=== PATIENT | female | born 1995 | race Two or more races ===

== ENCOUNTER 2019-02-04 21:08 | Emergency (ER) | payer SELFPAY ==
[~2019-02-04] VITALS: Ht 167.6 cm; Wt 73.0 kg
[2019-02-04 22:09] VITALS: BP 108/55
== END 2019-02-05 02:03 | disposition left against medical advice (07) ==
LOC: ER 21:08
DX: Z53.21 Procedure and treatment not carried out due to patient leaving prior to being seen by health care provider (principal)